=== PATIENT | female | born 1975 | race African-American/Black ===

== ENCOUNTER → 2016-07-05 | Outpatient (CLI) | payer BC ==
[~2016-07-05] MED LIST: FERR325T51 PO; PRENTAB26 PO
--- NOTE | 2016-07-05 14:08 | MAMMOGRAPHY REPORT ---
BILATERAL DIGITAL DIAGNOSTIC MAMMOGRAM TOMOSYNTHESIS WITH CAD AND TARGETED RIGHT ULTRASOUND: 07/05/19 CLINICAL HISTORY: Here for short interval follow-up for findings seen on prior right breast ultrasou nd and mammograms. The patient is currently lactating and has been breast-feeding for approximately 11 months. TECHNIQUE: Breast tomosynthesis in addition to standard 2D mammography was performed. Current study was also evaluated with a Computer Aided Detection (CAD) system. Bilateral CC and MLO 2-D and brooke synthesis images were obtained. Mammograms were performed immediately after the patient pumped. COMPARISON: Comparison is made to exams dated: 11/02/2015 ultrasound, 02/23/2015 ultrasound, 5 ultrasound, and 08/05/2014 mammogram - [facility]. BREAST COMPOSITION: The tissue of both breasts is heterogeneously dense, which may obscure small ma sses. FINDINGS: There is diffusely increased density of both breasts with prominent ducts seen, consistent with expe cted lactational changes. There are no suspicious masses, calcifications, or areas of architectural distortion noted in either breast, although the exam is limited due to the diffuse lactational rodriguez ges. Targeted ultrasound was performed of the area of the previously seen masses. In the right breast at 3:00, 1 cm from the nipple, again noted is a circumscribed hypoechoic cystic appearing mass which m easures 5 x 3 x 3 mm, not significantly changed and felt to represent a benign cyst versus duct ecta luisa. In the right breast at 6:00, 2 cm from the nipple, again noted is duct ectasia without a discr ete mass seen. In the right breast at 9:00, 4 cm from the nipple, again noted is duct ectasia witho ut a suspicious mass seen. No suspicious solid mass is evident although the exam is somewhat limite d due to diffuse lactational changes with prominent ectatic ducts. IMPRESSION: ACR BI-RADS CATEGORY 2: BENIGN, TARGETED ULTRASOUND ACR BI-RADS CATEGORY 2: BENIGN Limited exam due to diffuse lactational changes. However, within the limitations of the exam there is no mammographic or targeted sonographic evidence of malignancy. Recommend routine bilateral scre ening mammograms approximately 6-8 weeks after the patient has stopped breast-feeding (the patient b elieves she will be weaning in approximately 7 months or so). The patient has been verbally notified of the results. Approximately 10% of breast cancers are not detected with mammography. A negative mammographic repor t should not delay biopsy if a clinically suggestive mass is present. Dorothy Frias M.D. ah/:07/05/2016 11:49:15 Materials Planning Manager: Jessica COOK)([place]), [facility] letter sent: Normal 1/2 BI-RADS Code: ACR BI-RADS Category 2: Benign Ultrasound BI-RADS: ACR BI-RADS Category 2: Benign
== END | disposition home or self-care (01) ==
LOC: C.MAMM 10:08
PROVIDERS: ATTEND Obstetrics & Gynecology
DX: R93.8 Abnormal findings on diagnostic imaging of other specified body structures (principal)

== ENCOUNTER → 2017-02-28 | Outpatient (CLI) | payer BC | END | disposition home or self-care (01) | LOC: C.PAPS 11:16 | PROVIDERS: ATTEND Physician Assistant | DX: Z01.419 Encounter for gynecological examination (general) (routine) without abnormal findings (principal) ==